=== PATIENT | male | born 1945 | race Caucasian/White ===

== ENCOUNTER 2017-10-20 16:23 | Emergency (ER) | payer MEDICARE ==
[~2017-10-20] VITALS: Ht 185.4 cm; Wt 98.0 kg
--- OUTSIDE RECORDS SUMMARY | ~2017-10-20 | XMS | Clinical Summary ---
Demographics + + + | Address | [address] | | | [place] [address] | + + + | Home Phone | | + + + | Preferred Language | Unknown | + + + | Marital Status | | + + + | Sabianist Affiliation | Unknown | + + + | Race | White | + + + | Ethnic Group | Not or | + + + Author + + + | Author | NON REVENUE LOCATIONS | + + + | Organization | NON REVENUE LOCATIONS | + + + | Address | Unknown | + + + | Phone | Unavailable | + + + Support +------+ + + + + | Name | Relationship | Address | Phone | +------+ + + + + ECON | [address] | | [place] [address] | +------+ + + + + Care Team Providers + +------+ + | Care Billboard Erector Helper Name | Role | Phone | + +------+ + PP | Unavailable | + +------+ + Source Comments LYNN is fully live on both [facility] and [facility] Allergies No Known Allergies Current Medications + + +-------+---------+------+------+-------+ | Prescription | Sig. | Disp. | Refills | Star | End | Statu | | | | | | t | Date | s | | | | | | Date | | | + + +-------+---------+------+------+-------+ | COUMADIN OR | None Entered | | | | | Activ | | | | | | | | e | + + +-------+---------+------+------+-------+ | Cephalexin | take 1 capsule (500 | 21 | 0 | 12/2 | | Activ | | (KEFLEX) 500 mg Oral | mg) by oral route | | | 0/20 | | e | | Capsule | every 8 hours | | | 07 | | | + + +-------+---------+------+------+-------+ | Cephalexin | take 2 capsules now | 2 | 0 | 12/2 | | Activ | | (KEFLEX) 500 mg Oral | | | | 0/20 | | e | | Capsule | | | | 07 | | | + + +-------+---------+------+------+-------+ Active Problems Not on file Social History + +-------+ +--------+------+ | Tobacco Use | Types | Packs/Day | Years | Date | | | | | Used | | + +-------+ +--------+------+ | Never Assessed | | | | | + +-------+ +--------+------+ + + + | Sex Assigned at | Date Recorded | | | | + + + | Not on file | | + + + Last Filed Vital Signs + +---------+ + | Vital Sign | Reading | Time Taken | + +---------+ + | Blood Pressure | 110/76 | 09/26/2007 1:27 PM PST | + +---------+ + | Pulse | 76 | 09/26/2007 1:27 PM PST | + +---------+ + | Temperature | - | - | + +---------+ + | Respiratory Rate | 16 | 09/26/2007 1:27 PM PST | + +---------+ + | Oxygen Saturation | - | - | + +---------+ + | Inhaled Oxygen | - | - | | Concentration | | | + +---------+ + | Weight | - | - | + +---------+ + | Height | - | - | + +---------+ + | Body Mass Index | - | - | + +---------+ + Plan of Treatment + + + + + | Health Maintenance | Due Date | Last Done | Comments | + + + + + | INFLUENZA VACCINE | | | | | (FLU SHOT) | 7 | | | + + + + + Results Not on filefrom Last 3 Months"
--- OUTSIDE RECORDS SUMMARY | ~2017-10-20 | XMS | Clinical Summary ---
Demographics + + + | Address | [address] | | | [place] [address] | + + + | Home Phone | | + + + | Preferred Language | Unknown | + + + | Marital Status | | + + + | Sabianism Affiliation | Unknown | + + + [...] [address] | | [place] [address] | +------+ + + + + Care Team Providers + +------+ + | Care Rn Support Services Name | Role | Phone | + +------+ + PP | Unavailable | + +------+ + Source Comments LYNN is fully live on both [facility] and [facility] InPatient.[facility] Allergies No Known Allergies Current Medications + [...]
[2017-10-20] MEDS ORDERED: ASPIR 8181 MG PO (16:40)
== END 2017-10-20 16:48 | disposition home or self-care (01) ==
LOC: ED 16:23
DX: S61.412A Laceration without foreign body of left hand, initial encounter (principal); W26.8XXA Contact with other sharp object(s), not elsewhere classified, initial encounter

== ENCOUNTER 2018-12-05 12:32 | Day surgery (SDC) | payer MEDICARE, OTHER ==
[~2018-12-05] VITALS: Ht 185.4 cm; Wt 103.9 kg
[~2018-12-05 12:32] MED LIST: ASPIR 8181 MG PO
--- NOTE | 2018-12-05 16:42 | NUR ---
12/05/18 1642 Nila Delcid 1635 PATIENT ARRIVES TO PACU AWAKE, DENIES PAIN OR NAUSEA. RESP EVEN AND UNLABORED, ROOM AIR SATS >95%. PASSING GAS.
--- NOTE | 2018-12-07 10:33 | OR ---
[facility] [address] [place], [place] [address] Signed DATE OF OPERATION: 12/05/2018 SURGEON: Cindy Almendarez MD PREOPERATIVE DIAGNOSES: Surveillance colonoscopy, hyperplastic polyp 2011, normal colonoscopy 2001. POSTOPERATIVE DIAGNOSIS: Polyps x5 including large polyp at 15 cm. PROCEDURE: Total colonoscopy to cecum with snare polypectomy x2 and cold morcellation polypectomy x3. ANESTHESIA: Intravenous sedation, fentanyl 100 mcg, Versed 5 mg. INDICATION: This 72-year-old white man is known to me from the past having undergone left inguinal hernia repair in 2005. The patient underwent colonoscopy in 2011, which showed a diminutive polyp, which was hyperplastic. A colonoscopy in 2001 was normal. He is symptom free, having no bleeding diarrhea or constipation and no family history of colon cancer. He has been treated for prostate cancer by Dr. Dinorah Terrazas in 2000. He is admitted at this time to undergo colonoscopy. He understands the risks of bleeding, infection, and perforation. FINDINGS: The prep was good. Complete colonoscopy was undertaken to the cecum. There was a rather large pedunculated polyp at 15 cm which was excised with hot snare polypectomy technique. Another at approximately 90 cm in the left transverse colon, excised with cold snare polypectomy technique and three other small polyps excised with cold morcellation technique. In addition, he had numerous diverticula of the sigmoid and left colon. DESCRIPTION OF PROCEDURE: The patient brought to the endoscopy suite and placed in lateral decubitus position and given intravenous sedation to the point of slurred speech and nystagmus with full cardiopulmonary monitoring. Digital rectal examination was normal. An Olympus video colonoscope was passed in the rectum and manipulated throughout the Electronically Signed By: CINDY ALMENDAREZ MD 12/07/18 1033 PATIENT NAME: JUSTIN MADISON OPERATIVE REPORT DATE OF : 45 REPORT #: [id number] PHYSICIAN: CINDY ALMENDAREZ MD PCP: JUAN MANUEL SULLIVAN MD REPORT IS CONFIDENTIAL AND NOT TO BE RELEASED WITHOUT AUTHORIZATION [facility] [address] [place], [place] [address] Signed colon ultimately intubating the cecum itself. Upon withdrawal of scope, there was noted to be a polyp in the left transverse colon which was excised with cold snare technique. Another small polyp was noted in the proximal descending colon, also excised with cold morcellation technique. Diverticula once again seen in the left colon. A small polyp in the sigmoid was excised with cold morcellation technique and a larger polyp at 15 cm, excised with hot snare polypectomy technique. All were retrieved and passed for pathology. The patient tolerated the procedure well, was taken to recovery room in good condition. CONCLUDING DIAGNOSIS: Polyps x5. PLAN: Recommend repeat colonoscopy in 5 years or sooner if clinically indicated. He will return to the ongoing care of Dr. Sullivan. MD ANIRUDH Verdugo/MADDIE /[id number] cc: Juan Manuel Sullivan MD Copies: JUAN MANUEL SULLIVAN MD ~ Electronically Signed By: CINDY ALMENDAREZ MD 12/07/18 1033 PATIENT NAME: JUTSIN MADISON ADDIE OPERATIVE REPORT DATE OF : 45 REPORT #: [id number] PHYSICIAN: CINDY ALMENDAREZ MD PCP: JUAN MANUEL SULLIVAN MD REPORT IS CONFIDENTIAL AND NOT TO BE RELEASED WITHOUT AUTHORIZATION
== END 2018-12-05 17:24 | disposition home or self-care (01) ==
LOC: OPS 12:32 → DS 12:32 → OPS 14:00 → DS 14:00 → OPS 17:24
PROVIDERS: Surgery
PROC: 0DBE8ZX Excision of Large Intestine, Via Natural or Artificial Opening Endoscopic, Diagnostic (ICD-10-PCS; 2018-12-05)
PROC: 0DBL8ZX Excision of Transverse Colon, Via Natural or Artificial Opening Endoscopic, Diagnostic (ICD-10-PCS; 2018-12-05)
PROC: 0DBN8ZX Excision of Sigmoid Colon, Via Natural or Artificial Opening Endoscopic, Diagnostic (ICD-10-PCS; 2018-12-05)
PROC: 0DBM8ZX Excision of Descending Colon, Via Natural or Artificial Opening Endoscopic, Diagnostic (ICD-10-PCS; principal; 2018-12-05 14:00)
DX: Z12.11 Encounter for screening for malignant neoplasm of colon (principal); D12.5 Benign neoplasm of sigmoid colon; D12.3 Benign neoplasm of transverse colon; D12.6 Benign neoplasm of colon, unspecified; K57.30 Diverticulosis of large intestine without perforation or abscess without bleeding; G47.30 Sleep apnea, unspecified; Z86.010 Personal history of colon polyps
CPT/HCPCS: 99153; G0500; J0690; J2250; J3010; J7120

== ENCOUNTER 2021-02-01 10:18 | Emergency (ER) | payer MEDICARE, OTHER ==
[~2021-02-01] VITALS: Ht 185.4 cm; Wt 102.1 kg
--- OUTSIDE RECORDS SUMMARY | 2021-02-01 12:52 | XMS ---
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 - 2 Visits in 30 Days CARE PROVIDERS There are no care providers on record at this time. [place] has no Care Guidelines for this patient. Bret VISIT COUNT (12 MO.) [address] TOTAL 2 NOTE: Visits indicate total known visits. ED/C VISIT TRACKING (12 MO.) 02/01/2021 12:[address] [facility] Jocelin LOWERY TYPE: Emergency DIAGNOSES: - Low back pain, weakness 02/01/2021 10:19 TIM Saenz [place] TYPE: Emergency COMPLAINT: - NUMB LEGS, TAILBONE PAIN INPATIENT VISIT TRACKING (12 MO.) No inpatient visits to display in this time frame [email or web address]
== END 2021-02-01 11:40 | disposition short-term general hospital (02) ==
LOC: ED 10:18
DX: M62.81 Muscle weakness (generalized) (principal); M54.9 Dorsalgia, unspecified; Z85.46 Personal history of malignant neoplasm of prostate; Z85.828 Personal history of other malignant neoplasm of skin
CPT/HCPCS: 99284

== ENCOUNTER 2024-09-19 08:46 | Day surgery (SDC) | payer MEDICARE, OTHER ==
[~2024-09-19] VITALS: Ht 185.4 cm; Wt 86.2 kg
[~2024-09-19 08:46] MED LIST changes: +CEFAZOLIN SODIUM 2 GM/20 ML SYR IV SCH; +IBLOOD GLUCOSE TEST STRIP 1 EA TEST VI PRN; +LACTATED RINGER'S 1,000 ML IV SCH; +LIDOCAINE HCL 1% 5 ML SDV INJ ONE; +MIDAZOLAM HCL 5 MG/5 ML VIAL IV PRN; +TOPROL XL100 MG PO; +WARFARIN SODIUM2 MG PO; +WARFARIN SODIUM5 MG PO; +fentaNYL citrate 100 MCG/2 ML VIAL IV PRN
[2024-09-19 09:10] VITALS: BP 119/58
[2024-09-19] MEDS ORDERED: VITAMIN C 500500 M1 PO (09:16)
[2024-09-19] MEDS ORDERED: MIDAZOLAM HCL 5 MG/5 ML VIAL ONE (10:21)
[2024-09-19] MEDS ORDERED: fentaNYL citrate 100 MCG/2 ML VIAL ONE (10:21)
--- NOTE | 2024-09-19 11:24 | NUR ---
09/19/24 Gabriela4 Annetta Mattson PATIENT ARRIVES TO PACU WITH SHALLOW RESPIRATIONS. MY LOUD VOICE AND FIRM TOUCH ENCOURAGES PATIENT TO TAKE DEEP BREATHS. PATIENT IS REORIENTED. HE VERBALIZES UNDERSTANDING.
[2024-09-19 11:48] VITALS: BP 117/61
--- NOTE | 2024-09-22 15:14 | PATH ---
[facility] [address] [place], [place] [address] Signed SPECIMEN(S): A ASCENDING POLYP SPECIMEN(S): B CECUM POLYP SPECIMEN(S): C ASCENDING POLYP SPECIMEN(S): D SIGMOID POLYP SPECIMEN SOURCE: A. ASCENDING POLYP B. CECUM POLYP C. ASCENDING POLYP D. SIGMOID POLYP CLINICAL HISTORY: Pre: 2019 polyps x5, tubular adenoma. Post: Diverticulosis and polyps x4 FINAL PATHOLOGIC DIAGNOSIS: A. Ascending polyp: - Tubular adenoma (one fragment). B. Cecum polyp: - Tubular adenoma (one fragment). C. Ascending polyp: - Tubular adenoma (one fragment). D. Sigmoid polyp: - Polypoid colonic mucosa with slight hyperplastic features (multiple fragments). JVR:mike MICROSCOPIC EXAMINATION: Histologic sections of all submitted blocks are examined by light microscopy. These findings, together with the gross examination, support the pathologic diagnosis. GROSS DESCRIPTION: A. The specimen, labeled and designated "Maren, ascending colon polyp," is received in formalin and consists of two olmstead soft tissue fragments, ranging from 0.1 cm. Entirely submitted in (A1). B. The specimen, labeled and designated "Maren, cecum polyp," is received in formalin and consists of six olmstead soft tissue fragments, ranging from 0.1 to 0.2 cm. Entirely submitted in (B1). C. The specimen, labeled and designated "Maren, ascending colon polyp," is received in formalin and consists of one olmstead soft tissue fragment, 0.2 cm. Entirely submitted in (C1). PATIENT NAME: JUSTIN MADISON PATHOLOGY DATE OF : 45 REPORT #: [id number] PHYSICIAN: JUJU TILLMAN PCP: JULI FU MD REPORT IS CONFIDENTIAL AND NOT TO BE RELEASED WITHOUT AUTHORIZATION [facility] [address] [place] [id number] Signed D. The specimen, labeled and designated "Maren, sigmoid colon polyp," is received in formalin and consists of three olmstead soft tissue fragments, ranging from 0.1 cm. Entirely submitted in (D1). JS (under the direct supervision of a pathologist) The Gross Description was prepared using a voice recognition system. The report was reviewed for accuracy; however, sound-alike word errors, addition and/or deletions may occur. If there is any question about this report, please contact Client Services. PERFORMING LABORATORY: Technical component was performed by [facility], [address] [place] [address] (CLIA# [id number]). Professional interpretation was performed by [facility] - [facility], [address] [place] [id number] (CLIA#: [id number]). Diagnostician: Milton Villavicencio MD Pathologist Electronically Signed 09/22/2024 Copies: ~ PATIENT NAME: JUSTIN MADISON PATHOLOGY DATE OF : 45 REPORT #: [id number] PHYSICIAN: JUJU TILLMAN PCP: JULI FU MD REPORT IS CONFIDENTIAL AND NOT TO BE RELEASED WITHOUT AUTHORIZATION
--- NOTE | 2024-09-24 19:27 | OR ---
[facility] [address] [place], [place] [address] Signed DATE OF OPERATION: 09/19/2024 SURGEON: Cindy Almendarez MD PREOPERATIVE DIAGNOSIS: History of tubular adenomas x5 in 2019 and known diverticulosis. POSTOPERATIVE DIAGNOSES: 1. Sigmoid diverticulosis. 2. Polyps x3. PROCEDURE: Total colonoscopy to cecum with cold morcellation polypectomy x3. ANESTHESIA: Intravenous sedation; fentanyl 150 mcg, Versed 7 mg and preop antibiotic 2 g Ancef. INDICATION: This 78-year-old white man is patient of Dr. Sullivan. He underwent colonoscopy by me in 2019 at which time he was found to have five polyps, all of them tubular adenomas. He is currently asymptomatic. He has no family history of colon cancer. He is admitted at this time to undergo surveillance colonoscopy. The patient does have joint replacement history and on that basis, was given Ancef 2 g preoperatively as well. Findings showed three small polyps and diverticulosis. All the polyps were excised. DESCRIPTION OF PROCEDURE: The patient was brought to the endoscopy suite and placed in lateral decubitus position, given intravenous sedation to the point of slurred speech and nystagmus. Preoperative antibiotic Ancef 2 g was given. Digital rectal examination was normal. An Olympus video colonoscope was passed in the rectum and manipulated throughout the colon noting numerous diverticula of the sigmoid and left colon. Scope was ultimately passed to the cecum with the assistance of abdominal wall stabilization and additional sedation. Full intubation of the cecum was noted. In the fold in the cecum was a small mucosal area that was suggestive though not diagnostic of polyp and not able to be distinguished with narrow band imaging. This was morcellate and passed for pathology. A marimar raoul probable adenomatous polyp was additionally noted of the cecum which was quite small and was excised and passed in the same container. Further withdrawal showed another small polyp in the distal ascending colon which was excised with cold morcellation technique. Upon withdrawal of scope more fully diverticula were noted in Electronically Signed By: CINDY ALMENDAREZ MD 09/24/24 1927 PATIENT NAME: JUSTIN MADISON OPERATIVE REPORT DATE OF : 45 REPORT #: [id number] PHYSICIAN: CINDY ALMENDAREZ MD PCP: JUAN MANUEL SULLIVAN MD REPORT IS CONFIDENTIAL AND NOT TO BE RELEASED WITHOUT AUTHORIZATION [facility] [address] [place], [place] [address] Signed the left colon and sigmoid and at the rectosigmoid, a small polyp seen and excised. Retroflexed view of the rectum was essentially normal, though there were some minimal internal hemorrhoidal changes. Scope was removed. The patient was taken to recovery room in good condition. CONCLUDING DIAGNOSIS: Polyps x3 and diverticulosis. PLAN: Recommend repeat colonoscopy in 5 to 7 years, sooner if symptoms should develop. Recommend high-fiber diet based on diverticulosis. He will return to the ongoing care of Dr. Sullivan or his designee as Dr. Sullivan is planning to retire in the very near future. MD ANIRUDH Verdugo/MADDIE /[id number] cc: Juan Manuel Sullivan MD Copies: JUAN MANUEL SULLIVAN MD ~ Electronically Signed By: CINDY ALMENDAREZ MD 09/24/24 1927 PATIENT NAME: JUSTIN MADISON OPERATIVE REPORT DATE OF : 45 REPORT #: [id number] PHYSICIAN: CINDY ALMENDAREZ MD PCP: JUAN MANUEL SULLIVAN MD REPORT IS CONFIDENTIAL AND NOT TO BE RELEASED WITHOUT AUTHORIZATION
== END 2024-09-19 12:12 | disposition home or self-care (01) ==
LOC: DS 08:46
PROVIDERS: ATTEND Surgery
PROC: 0DBN8ZZ Excision of Sigmoid Colon, Via Natural or Artificial Opening Endoscopic (ICD-10-PCS; 2024-09-19)
PROC: 0DBF8ZZ Excision of Right Large Intestine, Via Natural or Artificial Opening Endoscopic (ICD-10-PCS; 2024-09-19)
PROC: 0DBH8ZZ Excision of Cecum, Via Natural or Artificial Opening Endoscopic (ICD-10-PCS; 2024-09-19)
PROC: 0DBK8ZZ Excision of Ascending Colon, Via Natural or Artificial Opening Endoscopic (ICD-10-PCS; principal; 2024-09-19 09:45)
DX: Z12.11 Encounter for screening for malignant neoplasm of colon (principal); D12.2 Benign neoplasm of ascending colon; D12.0 Benign neoplasm of cecum; K63.5 Polyp of colon; K57.30 Diverticulosis of large intestine without perforation or abscess without bleeding
CPT/HCPCS: 88305; 99153; G0500; J0690; J2250; J3010; J7121

== ENCOUNTER 2025-02-23 14:35 | Emergency (ER) | payer MEDICARE, OTHER ==
[~2025-02-23] VITALS: Ht 185.4 cm; Wt 87.0 kg
[~2025-02-23 14:35] MED LIST changes: -CEFAZOLIN SODIUM 2 GM/20 ML SYR IV SCH; -IBLOOD GLUCOSE TEST STRIP 1 EA TEST VI PRN; -LACTATED RINGER'S 1,000 ML IV SCH; -LIDOCAINE HCL 1% 5 ML SDV INJ ONE; -MIDAZOLAM HCL 5 MG/5 ML VIAL IV PRN; +VITAMIN C 500500 M1 PO; -fentaNYL citrate 100 MCG/2 ML VIAL IV PRN
[2025-02-23] MEDS ORDERED: CANDICIDAL CAP1 EACH PO (14:53)
[2025-02-23 16:57] VITALS: BP 116/90
== END 2025-02-23 17:02 | disposition home or self-care (01) ==
LOC: ED 14:35
DX: S01.21XA Laceration without foreign body of nose, initial encounter (principal); W22.8XXA Striking against or struck by other objects, initial encounter; I48.91 Unspecified atrial fibrillation; Z79.01 Long term (current) use of anticoagulants
CPT/HCPCS: 12011; 70450; 99283-25